=== PATIENT | female | born 1950 | race Caucasian/White ===

== ENCOUNTER 2016-08-05 11:33 | Outpatient (CLI) | payer MEDICARE, OTHER ==
--- NOTE | 2016-08-08 13:59 | Mammography Report ---
DIGITAL SCREENING MAMMOGRAM: 08/05/2016 CLINICAL INDICATION: A 66-year-old for screening, family history of breast cancer. COMPARISON: 12/2014 TECHNIQUE: Routine CC and MLO projections were obtained of the breasts as well as bilateral laterall y exaggerated craniocaudal views. FINDINGS: Parenchymal tissue within both breasts is heterogeneously dense, which may lower the sensi tivity of mammography; however, there are no dominant masses, suspicious microcalcifications, or seco ndary signs of malignancy. In comparison to the previous studies, there are no significant changes. ASSESSMENT: NO MAMMOGRAPHIC EVIDENCE OF MALIGNANCY. NO SIGNIFICANT INTERVAL CHANGES. RECOMMENDATION: Screening mammography is recommended annually. BIRADS category 1 - negative. STANDARD QUALIFYING STATEMENTS 1. This examination was reviewed with the aid of Computed-Aided Detection (CAD). 2. A negative or benign imaging report should not delay biopsy if clinically suspicious findings are present. Consider surgical consultation if warranted. More than 5% of cancers are not identified by i maging. 3. Dense breasts may obscure an underlying neoplasm. JOB #: [id number] EXT JOB #:[id number]
== END 2016-08-05 11:34 | disposition home or self-care (01) ==
LOC: DI 11:33
PROVIDERS: ATTEND Internal Medicine
DX: Z12.31 Encounter for screening mammogram for malignant neoplasm of breast (principal); Z80.3 Family history of malignant neoplasm of breast
CPT/HCPCS: 77067

== ENCOUNTER 2018-04-20 08:58 | Outpatient (CLI) | payer MEDICARE, OTHER ==
--- NOTE | 2018-04-20 10:04 | DEXA Report ---
Reason: ENCOUNTER FOR SCR OSTEOPOROSIS,FAMILY HISTORY OF I Procedure Date: 04/20/2018 Accession Number: [id number] / [id number] Procedure: DEX - Dexa Spine and/or Hip CPT Code: FULL RESULT: EXAM: Dexa Spine and/or Hip DATE: 04/20/2018 9:48 AM CLINICAL HISTORY: ENCOUNTER FOR SCR Osteoporosis, family HISTORY OF I TECHNIQUE: Dual energy x-ray absorptiometry (DXA) was performed on a [employer] System. Regions measured are the AP Spine, femoral neck, and if needed forearm. COMPARISON: None. In accordance with the International Society for Clinical Densitometry (ISCD) guidelines, data from previous exams may be reanalyzed using current recommendations and techniques. This is done to allow a more accurate basis for comparison with the current study. FINDINGS: The data for the lumbar spine is as follows: BMD (g/cm/cm) T-SCORE Z-SCORE REGION L1 0.954 -1.5 0.3 L2 0.888 -2.6 -0.8 L3 1.074 -1.1 0.7 L4 1.082 -1.0 0.8 TOTAL 1.001 -1.5 0.3 NOTE: All evaluable vertebrae are used for classification The data for the hip is as follows: BMD (g/cm/cm) T-SCORE Z-SCORE REGION Neck 0.791 -1.8 0.0 TOTAL 0.881 -1.0 0.5 NOTE: The femoral neck or total proximal femur, whichever is lowest, is used for classification. IMPRESSION: THE WHO CLASSIFICATION BASED ON THE INTERNATIONAL REFERENCE STANDARD IS OSTEOPENIA. THE FRACTURE RISK IS INCREASED. RECOMMENDATION: Patients with diagnosis of osteoporosis or osteopenia should have regular bone mineral density assessment. For those eligible for Medicare, routine testing is allowed once every 2 years. Testing frequency can be increased for patients who have rapidly progressing disease or for those who are receiving medical therapy to restore bone mass. COMMENT: World Health Organization (WHO) definitions for osteoporosis and osteopenia: NORMAL BMD: T-score at -1.0 or higher, fracture risk is low OSTEOPENIA BMD: T-score between -1.0 and -2.5, fracture risk is increased. OSTEOPOROSIS BMD: T-score at -2.5 or lower, fracture risk is high. National Osteoporosis Foundation recommends: 1. Obtain adequate dietary calcium (at least 1200 mg per day) and vitamin D (400-800 international units per day). 2. Participate, as appropriate, in regular weightbearing and muscle-strengthening exercise. 3. Avoid tobacco use and reduce alcohol and caffeine intake. 4. For more detailed information see the website at www.NOF.org.
== END 2018-04-20 08:59 | disposition home or self-care (01) ==
LOC: DI 08:58
PROVIDERS: ATTEND Physician Assistant
DX: Z13.820 Encounter for screening for osteoporosis (principal); M85.89 Other specified disorders of bone density and structure, multiple sites; Z78.0 Asymptomatic menopausal state
CPT/HCPCS: 77080

== ENCOUNTER 2018-04-20 09:03 | Outpatient (CLI) | payer MEDICARE, OTHER ==
--- NOTE | 2018-04-20 10:13 | Mammography Report ---
Reason: ENCOUNTER FOR SCREENING MAMMOGRAM FOR MALIGNANT NE Procedure Date: 04/20/2018 Accession Number: [id number] / [id number] Procedure: ANTONIO - Screening Mammo w/Henry CPT Code: FULL RESULT: EXAM: Screening Mammo w/Henry DATE: 04/20/2018 10:03 AM CLINICAL HISTORY: Routine screening. No reported personal history of breast cancer. Family history breast cancer in sister at age 41 TECHNIQUE: Bilateral CC and MLO views were obtained. COMPARISON: 08/05/2016 through 12/19/2013 FINDINGS: The breasts demonstrate heterogeneously dense fibroglandular parenchyma bilaterally. Bilateral breasts: There are no suspicious masses, calcifications or areas of distortion. IMPRESSION: Negative examination RECOMMENDATION: Routine annual screening unless otherwise clinically indicated. Given family history, patient may be at increased risk for development of breast cancer. Formal risk assessment with a genetic counselor should be considered; patient may benefit from advanced screening practices and/or risk reduction strategies if there is sufficient assessed risk. BI-RADS CATEGORY 1: Negative STANDARD QUALIFYING STATEMENTS: 1. This examination was not reviewed with the aid of Computer-Aided Detection (CAD). 2. A negative or benign imaging report should not preclude biopsy if clinically suspicious findings are present. 3. Dense breasts may obscure an underlying neoplasm. 4. This examination was reviewed with the aid of 3D breast imaging (tomosynthesis).
== END 2018-04-20 09:04 | disposition home or self-care (01) ==
LOC: DI 09:03
PROVIDERS: ATTEND Physician Assistant
DX: Z12.31 Encounter for screening mammogram for malignant neoplasm of breast (principal); Z80.3 Family history of malignant neoplasm of breast
CPT/HCPCS: 77063; 77067

== ENCOUNTER 2020-12-24 12:49 | Outpatient (CLI) | payer MEDICARE ==
--- NOTE | 2020-12-24 16:33 | DEXA Report ---
PROCEDURE: Dexa Spine and/or Hip INDICATIONS: POST MENOPAUSAL TECHNIQUE: Dual energy x-ray absorptiometry (DXA) was performed on a [employer] System. Regions measur ed are the AP Spine, femoral neck, and if needed forearm. COMPARISON: None. FINDINGS: Lumbar Spine: Bone Mineral Density 1.0 g/cm/cm,T score -1.5, osteopenia Left Hip: Bone Mineral Density 0.4 g/cm/cm,T score -1.30, osteopenia Impression: Osteopenia. Patients with diagnosis of osteoporosis or osteopenia should have regular bone mineral density assess ment. For those eligible for Medicare, routine testing is allowed once every 2 years. Testing frequ ency can be increased for patients who have rapidly progressing disease or for those who are receivin g medical therapy to restore bone mass. Reviewed by: Mina Vargas MD on 12/24/2020 4:32 PM PST Approved by: Mina Vargas MD on 12/24/2020 4:32 PM PST Station ID: [id number]
== END 2020-12-24 12:50 | disposition home or self-care (01) ==
LOC: DI 12:49
PROVIDERS: ATTEND Internal Medicine
DX: M85.89 Other specified disorders of bone density and structure, multiple sites (principal); N95.8 Other specified menopausal and perimenopausal disorders

== ENCOUNTER 2020-12-24 12:52 | Outpatient (CLI) | payer MEDICARE ==
--- NOTE | 2020-12-25 07:51 | Mammography Report ---
BILATERAL DIGITAL SCREENING MAMMOGRAM 3D/2D: 12/24/2020 CLINICAL: Routine screening. Comparison is made to exams dated: 04/20/2018 mammogram, 08/05/2016 mammogram, 12/08/2014 mammogram, an d 12/19/2013 mammogram - [facility]. The tissue of both breasts is heterogeneously dense. This may lower the sensitivity of mammography. No significant masses, calcifications, or other findings are seen in either breast. There has been no significant interval change. IMPRESSION: NEGATIVE There is no mammographic evidence of malignancy. A 1 year screening mammogram is recommended. This exam was interpreted at Station ID: [id number]. NOTE: For mammograms, a report in lay terms will be sent to the patient. Approximately 15% of breast malignancies will not be visualized mammographically. In the management of a palpable breast mass, a negative mammogram must not discourage biopsy of a clinically suspicious lesion. Electronically Signed By: Vinicius Miller M.D. aty/penrad:12/24/2020 14:37:25 ACR BI-RADS Category 1: Negative 3341F PARENCHYMAL PATTERN: (D) - The breast(s) demonstrate(s) heterogeneously dense fibroglandular emerson laura. BI-RADS CATEGORY: (1) - 1 RECOMMENDATION: (ANNUAL) - Recommend routine annual screening mammography. [id number] 1 year screening LATERALITY: (B)
== END 2020-12-24 12:53 | disposition home or self-care (01) ==
LOC: DI 12:52
PROVIDERS: ATTEND Internal Medicine
DX: Z12.31 Encounter for screening mammogram for malignant neoplasm of breast (principal)

== ENCOUNTER 2021-03-21 01:38 | Emergency (ER) | payer MEDICARE, OTHER ==
[2021-03-21] MEDS ORDERED: lidocaine 1% 20 ML MDV SUBQ ONE (02:04)
--- NOTE | 2021-03-21 02:08 | ED Physician Documentation ---
PD HPI HEAD INJURY - Stated complaint Stated Complaint: GLF, HEAD INJ, DIZZY - Chief complaint Chief Complaint: Neuro - History obtained from History obtained from: Patient - History of Present Illness Mechanism of head injury: Fell Where head injury occurred: Home Timing - onset: Today Location of injury: Left, Front Quality of pain: Pain Associated symptoms: Nausea / vomiting. No: LOC, AMS, Amnesia, Neck pain, Paresthesias, Seizures, Ear drainage, Nasal drainage Symptoms improve with: Rest Symptoms worsen with: Palpation, Movement Contributing factors: No: Anticoagulated Similar symptoms before: Has not had sx before Recently seen: Not recently seen - Additional information Additional information: Previous well 70-year-old female with history of thyroid disease was in her home this evening when she had a collapse on her way to the bathroom to vomit, striking her head. She did not have loss of consciousness with this. She indicates that she had some chicken babcock in [place] earlier in the day and that this evening when she was in bed she felt quite full suddenly had the urge to vomit got up to go to the bathroom collapsed on the way into the bathroom vomited and had diarrhea. She did not have loss of consciousness. She comes into the emergency department now for suturing. She denies any current nausea. Denies any neck pain. Denies other injury associated with this fall. Review of Systems Constitutional: denies: Fever, Chills, Myalgias Eyes: denies: Decreased vision Ears: denies: Ear pain Nose: denies: Rhinorrhea / runny nose, Congestion Throat: denies: Sore throat Cardiac: denies: Chest pain / pressure Respiratory: denies: Dyspnea, Cough GI: reports: Nausea, Vomiting, Diarrhea. denies: Abdominal Pain, Constipation : denies: Dysuria, Frequency Skin: reports: Laceration (s). denies: Rash Musculoskeletal: denies: Neck pain, Back pain, Extremity pain Neurologic: reports: Head injury. denies: Generalized weakness, Focal weakness, Numbness, Near syncope, Syncope, Headache, LOC PD PAST MEDICAL HISTORY - Past Medical History Cardiovascular: High cholesterol Respiratory: None Endocrine/Autoimmune: HyPOthyroidism GI: None : None HEENT: None Psych: None Musculoskeletal: None Derm: None - Present Medications Home Medications: Ambulatory Orders Medication Instructions Recorded Confirmed Phytosterol/Vit D3/Fish Oil 1 cap PO DAILY 09/30/14 03/21/21 [Cholesterol Relief Softgel] Multivitamin [Multi-Vitamin Daily] 500 mg PO DAILY 10/01/14 03/21/21 Thyroid,Pork [[place] Thyroid] 30 mg PO DAILY 10/01/14 03/21/21 - Allergies Allergies/Adverse Reactions: Allergies Allergy/AdvReac Type Severity Reaction Status Date / Time No Known Drug Allergies Allergy Verified 09/30/14 15:41 PD ED PE NORMAL - Vitals Vital signs reviewed: Yes (normal ) - General General: Alert and oriented X 3, No acute distress, Well developed/nourished, Other (70 y/o female with a dressing to the left forehead. ) - HEENT HEENT: PERRL, EOMI, Other (4.5cm L shaped laceration to the left forehead without foreign body, or involvement of deeper structures. No fracture. 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, No motor deficit, No sensory deficit, Normal speech Eye Opening: Spontaneous Motor: Obeys Commands Verbal: Oriented GCS Score: 15 - Psych Psych: Normal mood, Normal affect Results - Vitals Vitals: Vital Signs - 24 hr 03/21/21 03/21/21 03/21/21 01:40 03:04 03:25 Temperature 36.5 C 36.5 C Heart Rate 81 83 83 Respiratory 18 16 22 Rate Blood Pressure 99/70 144/83 H 114/77 O2 Saturation 100 98 99 03/21/21 03:36 Temperature Heart Rate Respiratory 22 Rate Blood Pressure 114/77 O2 Saturation 99 Oxygen O2 Source Room air Procedures - Laceration (location) forehead Length in cm: 4.5 Wound type: Curved, Flap, Into subcut fat, Clean Neurovascular status: Sensory intact, Motor intact, Vascular intact Anesthesia: Lidocaine 1% Wound preparation: Hibiclens, Irrigated copiously NS, Wound explored, To the base Skin layer closure: Nylon, Interrupted, Size #-0 - enter number (5-0), Sutures - enter # (12) Other: Patient tolerated well, No complications, Neurovascular intact, Dressing applied, Tetanus UTD left ear Length in cm: 2 Wound type: Curved, Flap, Superficial, Clean Wound preparation: Wound explored, To the base Skin layer closure: Dermabond Other: Patient tolerated well, No complications, Neurovascular intact, Tetanus UTD PD MEDICAL DECISION MAKING - ED course Complexity details: reviewed results, re-evaluated patient, considered differential, d/w patient ED course: 70-year-old female awoke in the middle of the night with an episode of vomiting that she felt was related to her chicken she ate earlier in the day. She arrives the emergency department no longer nauseated but with a laceration to her forehead. She states that at no time did she lose consciousness and she denies any pain in her neck she denies a headache she denies current nausea or vomiting. I did interrogate her in the inferior vena cava and found that it was normal in size and we did not pursue administration of intravenous fluid. Laceration to her forehead was fixed with 5-0 Ethilon and I will send the patient home with some Zofran. A second laceration in the conch is found and is closed with dermabond. The patient developed more nausea after being in the ED and I considered CT scan of the head and discussed this with the patient and she did not think this was necessary. We did administer TL zofran. Departure - Departure Disposition: 01 Home, Self Care Clinical Impression: Forehead laceration Qualifiers: Encounter type: initial encounter Qualified Code(s): S01.81XA - Laceration without foreign body of other part of head, initial encounter Laceration of left ear Qualifiers: Encounter type: initial encounter Qualified Code(s): S01.312A - Laceration without foreign body of left ear, initial encounter Condition: Stable Instructions: ED Laceration Facial Skin Glue, ED Laceration Facial Sutr Tape Follow-Up: Avery Valdez MD [Primary Care Provider] - Comments: Yamini today it looks like you have lacerated your forehead when you collapsed from nausea. The sutures will need to be removed in 5-6 days. Follow up with Dr. Valdez. We did not find that you were dehydrated enough to use IV fluids. Use the nausea medication as needed and stay hydrated. Discharge Date/Time: 03/21/21 03:35
[2021-03-21] MEDS ORDERED: BACITRACIN ZINC OINT 1 PACKET TOP STA (02:48)
[2021-03-21] MEDS ORDERED: BACITRACIN ZINC OINT 1 PACKET TOP ONE (02:58)
[2021-03-21] MEDS ORDERED: ONDANSETRON ODT 4 MG Prepack 2 TL PRN (03:01)
[2021-03-21] MEDS ORDERED: ONDANSETRON ODT 4 MG TABLET TL STA (03:19)
[2021-03-21 03:38] VITALS: BP 114/77
== END 2021-03-21 03:35 | disposition home or self-care (01) ==
LOC: ED 01:38
DX: S01.81XA Laceration without foreign body of other part of head, initial encounter (principal); S01.312A Laceration without foreign body of left ear, initial encounter; W18.30XA Fall on same level, unspecified, initial encounter; Y92.009 Unspecified place in unspecified non-institutional (private) residence as the place of occurrence of the external cause
CPT/HCPCS: 12014; 99282; 99284; A9270; Q0162

== ENCOUNTER 2023-02-22 13:49 | Outpatient (CLI) | payer MEDICARE, OTHER ==
--- NOTE | 2023-02-22 14:20 | XRAY Report ---
PROCEDURE: Foot 3+V RT (Weight Bearing) INDICATIONS: RIGHT FOOT PAIN TECHNIQUE: 3 views of the right foot were obtained. COMPARISON: None. FINDINGS: No visualized fracture or dislocation. No suspicious osseous lesions. Mild scattered IP degenerative narrowing, most severe at the first MTP joint. There is minimal midfoot degenerative change. No erosi ons. Soft tissues are unremarkable. IMPRESSION: Arthritic changes as above. Reviewed by: Silvana Talbot MD on 02/22/2023 2:18 PM [facility] Approved by: Silvana Talbot MD on 02/22/2023 2:18 PM [facility] Station ID: [id number]
== END 2023-02-22 13:50 | disposition home or self-care (01) ==
LOC: DI 13:49
PROVIDERS: ATTEND Podiatrist
DX: M19.071 Primary osteoarthritis, right ankle and foot (principal)